=== PATIENT | female | born 1935 | race Caucasian/White ===

== ENCOUNTER 2017-03-09 08:02 | Inpatient (IN) | payer MEDICARE ==
[~2017-03-09] VITALS: Ht 170.2 cm; Wt 123.6 kg
[2017-03-09] VITALS (13 sets, daily range): BP systolic 95–186; BP diastolic 38–122
[2017-03-09 08:28] LABS: BLOOD GAS PH 7.351 (7.35-7.45)
[2017-03-09 08:29] LABS: BLOOD GAS BASE EXCESS 5.5 mmol/L (-2.0-2.0); BLOOD GAS HCO3 32.5 mmol/L; BLOOD GAS PO2 57.4 mmHg
[2017-03-09 08:31] LABS: BLOOD GAS O2 SAT% 88.7 % (92.0-98.5)
[2017-03-09] MEDS ORDERED: PHE25S RC (08:33)
[2017-03-09] MEDS ORDERED: NA P135N RC (08:33)
[2017-03-09] MEDS ORDERED: DOCU-67 PO (08:33)
[2017-03-09] MEDS ORDERED: FERR325E14 PO (08:33)
[2017-03-09] MEDS ORDERED: MAGN400S60 PO (08:33)
[2017-03-09] MEDS ORDERED: BISA-213 RC (08:33)
[2017-03-09] MEDS ORDERED: CHOL400C PO (08:33)
[2017-03-09] MEDS ORDERED: ACET-1182 PO (08:33)
[2017-03-09] MEDS ORDERED: FOLI1TAB90 PO (08:33)
[2017-03-09] MEDS ORDERED: ACET-2858 PO (08:33)
[2017-03-09] MEDS ORDERED: LIDO5TDM45 TP (08:33)
[2017-03-09] MEDS ORDERED: CAR30 PO (08:33)
[2017-03-09] MEDS ORDERED: WARF-18 PO (08:33)
[2017-03-09] MEDS ORDERED: MYCPWD TP (08:33)
[2017-03-09] MEDS ORDERED: WARF2.5T77 PO (08:33)
[2017-03-09] MEDS ORDERED: ACET325C3 PO (08:33)
[2017-03-09] MEDS ORDERED: MULT-1305 PO (08:33)
[2017-03-09] MEDS ORDERED: MELA3TER PO ×2 (08:33)
[2017-03-09] MEDS ORDERED: ALLO100T21 PO (08:33)
[2017-03-09] MEDS ORDERED: fentaNYL 0.05 MG/ML VIAL IVP ONE ×2 (08:35→11:05)
[2017-03-09 08:45] LABS: BASOPHILS # (AUTO) 0.1 K/uL (0.00-0.22); BASOPHILS % (AUTO) 1.2 % (0.0-2.0); EOSINOPHILS # (AUTO) 0.2 K/uL (0-0.4); EOSINOPHILS % (AUTO) 2.3 % (0.0-4.0); HEMATOCRIT 30.6 % (36-48); HEMOGLOBIN 9.9 g/dL (12.0-16.0); LYMPHOCYTES # (AUTO) 0.6 K/uL (2.5-16.5); LYMPHOCYTES % (AUTO) 6.6 % (20.5-51.1); MEAN CORPUSCULAR HEMOGLOBIN 31 pg (27-31); MEAN CORPUSCULAR HGB CONC 32 g/dL (33-37); MEAN CORPUSCULAR VOLUME 95 fL (80-94); MONOCYTES # (AUTO) 0.3 K/uL (0.8-1.0); MONOCYTES % (AUTO) 3.7 % (1.7-9.3); NEUTROPHILS # (AUTO) 7.9 K/uL (1.8-7.7); NEUTROPHILS % (AUTO) 86.2 % (42.2-75.2); PLATELET COUNT (AUTO) 271 K/uL (140-450); RED BLOOD CELL COUNT(AUTO) 3.24 MIL/uL (4.20-5.40); RED CELL DISTRIBUTION WIDTH 14.8 % (11.6-13.7)
[2017-03-09 08:50] LABS: APPEARANCE,URINE HAZY (CLEAR); BILIRUBIN,URINE NEGATIVE (NEGATIVE); BLOOD, URINE NEGATIVE (NEGATIVE); COLOR,URINE YELLOW (YELLOW); LEUKOCYTE ESTERASE ,URINE NEGATIVE (NEGATIVE); NITRITE, URINE NEGATIVE (NEGATIVE); PH,URINE 6.5 (5.0-9.0); PROTEIN,URINE TRACE (NEGATIVE); UGLUCOSE NEGATIVE (NEGATIVE)
[2017-03-09 08:59] LABS: WHITE BLOOD COUNT (AUTO) 9.1 K/uL (4.8-10.8)
[2017-03-09 09:02] LABS: ALANINE AMINOTRANSFERASE 14 U/L (14-59); ALBUMIN 2.6 g/dL (3.4-5.0); ALKALINE PHOSPHATASE 103 U/L (46-116); ANION GAP 8.8 (8-16); ASPARTATE AMINOTRANSFERASE 19 U/L (15-37); CALCIUM 8.8 mg/dL (8.5-10.1); CARBON DIOXIDE 29.1 mmol/L (21-32); CHLORIDE 73 mmol/L (98-107); CREATININE 0.6 mg/dL (0.6-1.3); GLUCOSE 118 mg/dL (74-106); LIPASE 119 U/L (73-393); POTASSIUM 4.9 mmol/L (3.5-5.1); TOTAL BILIRUBIN 0.6 mg/dL (0.0-1.0); TOTAL PROTEIN, SERUM 7.3 g/dL (6.4-8.2); UREA NITROGEN, BLOOD 9 mg/dL (7-18)
[2017-03-09 09:03] LABS: INR 3.1 (0.8-1.2); PROTHROMBIN TIME 31.4 secs (10.8-13.4)
[2017-03-09 09:05] LABS: LACTIC ACID 1.1 mmol/L (0.4-2.0); SODIUM SERUM 106 mmol/L (136-145)
[2017-03-09] MEDS ORDERED: NACL 0.9% 1,000 ML IV ONE (09:10)
[2017-03-09] MEDS ORDERED: ONDANSETRON 4 MG/2 ML VIAL IVP PRN (10:10)
[2017-03-09] MEDS ORDERED: ACETAMINOPHEN 325 MG TAB PO PRN (10:10)
[2017-03-09] MEDS ORDERED: MECLIZINE 25 MG TAB PO PRN (10:15)
[2017-03-09] MEDS ORDERED: NACL 3% 250 ML IV ONE (10:50)
[2017-03-09] MEDS ORDERED: NACL 3% 100 ML IV ONE ×3 (11:00→23:00)
[2017-03-09 11:03] LABS: CHOL/HDL RATIO 1.8 (1-4.5); FREE T4 (FREE THYROXINE) 1.36 ng/dL (0.76-1.46); MAGNESIUM 1.3 mg/dL (1.8-2.4); THYROID STIMULATING HORMONE 1.74 uIU/mL (0.34-3.74)
[2017-03-09] MEDS ORDERED: ALBUTEROL SULFATE/IPRATROPIU 3 ML SOL IH PRN (11:05)
[2017-03-09] MEDS ORDERED: LORazepam 2 MG/ML VIAL IVP ONE (11:05)
[2017-03-09 11:13] LABS: ANION GAP 9.7 (8-16); CALCIUM 8.4 mg/dL (8.5-10.1); CARBON DIOXIDE 28.4 mmol/L (21-32); CHLORIDE 74 mmol/L (98-107); CREATININE 0.7 mg/dL (0.6-1.3); GLUCOSE 136 mg/dL (74-106); POTASSIUM 5.1 mmol/L (3.5-5.1); UREA NITROGEN, BLOOD 8 mg/dL (7-18)
[2017-03-09 11:15] LABS: SODIUM SERUM 107 mmol/L (136-145)
[2017-03-09 11:47] LABS: BLOOD GAS BASE EXCESS 4.1 mmol/L (-2.0-2.0); BLOOD GAS HCO3 28.3 mmol/L; BLOOD GAS PH 7.457 (7.35-7.45)
[2017-03-09 11:48] LABS: BLOOD GAS O2 SAT% 94.8 % (92.0-98.5)
[2017-03-09] MEDS ORDERED: FUROSEMIDE 20 MG/2 ML VIAL IVP SCH ×2 (13:13→18:28)
[2017-03-09] MEDS: ALBUTEROL SULFATE/IPRATROPIU 3 ML SOL IH SCH ×2 (13:17→18:00)
[2017-03-09] MEDS ORDERED: LIDOCAINE 5% 1 EA PATCH TP PRN (14:35)
[2017-03-09] MEDS ORDERED: WARFARIN 5 MG TAB PO SCH (14:35)
[2017-03-09] MEDS ORDERED: ACETAMINOPHEN 325 MG TAB PO SCH (14:35)
[2017-03-09] MEDS ORDERED: MAGNESIUM HYDROXIDE 2400 MG/30 ML UDC PO PRN (14:35)
[2017-03-09] MEDS ORDERED: PROMETHAZINE 25 MG SUPP RC PRN (14:35)
[2017-03-09] MEDS ORDERED: BISACODYL 10 MG SUPP RC PRN (14:35)
[2017-03-09] MEDS ORDERED: fentaNYL 1 MG in NACL 0.9% 80 ML IV PRN (14:55)
[2017-03-09] MEDS ORDERED: MIDAZOLAM MDV 50 MG in NACL 0.9% 40 ML IV PRN ×2 (15:05→15:25)
[2017-03-09] MEDS ORDERED: WARFARIN 1 MG TAB PO SCH (17:00)
[2017-03-09 18:16] LABS: ANION GAP 8.5 (8-16); CALCIUM 8.4 mg/dL (8.5-10.1); CARBON DIOXIDE 29.1 mmol/L (21-32); CHLORIDE 76 mmol/L (98-107); CREATININE 0.6 mg/dL (0.6-1.3); GLUCOSE 70 mg/dL (74-106); POTASSIUM 4.6 mmol/L (3.5-5.1); UREA NITROGEN, BLOOD 10 mg/dL (7-18)
[2017-03-09 18:19] LABS: SODIUM SERUM 109 mmol/L (136-145)
[2017-03-09] MEDS ORDERED: MAG SULF 2000 MG/WATER PREMIX 50 ML IV SCH (18:57)
[2017-03-09] MEDS ORDERED: DOCUSATE 100 MG/10 ML UDC PO SCH (21:00)
[2017-03-09] MEDS: DILTIAZEM 30 MG TAB PO SCH (21:00)
[2017-03-09] MEDS: DOCUSATE SODIUM 100 MG GELCAP PO SCH (21:00)
[2017-03-09] MEDS: FERROUS SULFATE 300 MG/5 ML UDC PO SCH (21:00)
[2017-03-10] VITALS (20 sets, daily range): BP systolic 97–158; BP diastolic 52–89
[2017-03-10 01:15] LABS: CALCIUM 8.4 mg/dL (8.5-10.1); CARBON DIOXIDE 28.8 mmol/L (21-32); CHLORIDE 79 mmol/L (98-107); CREATININE 0.7 mg/dL (0.6-1.3); GLUCOSE 69 mg/dL (74-106); POTASSIUM 3.8 mmol/L (3.5-5.1); UREA NITROGEN, BLOOD 9 mg/dL (7-18)
[2017-03-10 02:19] LABS: SODIUM SERUM 114 mmol/L (136-145)
[2017-03-10] MEDS ORDERED: FUROSEMIDE 20 MG/2 ML VIAL IVP SCH ×5 (02:25→18:00)
[2017-03-10] MEDS ORDERED: DEXT 5% / NACL 0.9% 1,000 ML IV ONE (02:35)
[2017-03-10 03:30] LABS: ANION GAP 10.4 (8-16); CALCIUM 8.2 mg/dL (8.5-10.1); CARBON DIOXIDE 27.5 mmol/L (21-32); CHLORIDE 80 mmol/L (98-107); CREATININE 0.7 mg/dL (0.6-1.3); GLUCOSE 71 mg/dL (74-106); POTASSIUM 3.9 mmol/L (3.5-5.1); UREA NITROGEN, BLOOD 8 mg/dL (7-18)
[2017-03-10 03:31] LABS: SODIUM SERUM 114 mmol/L (136-145)
[2017-03-10] MEDS ORDERED: NACL 3% 100 ML IV ONE (06:00)
[2017-03-10] MEDS: ALBUTEROL SULFATE/IPRATROPIU 3 ML SOL IH SCH ×3 (06:28→19:35)
[2017-03-10] MEDS: DILTIAZEM 30 MG TAB PO SCH ×3 (06:28→20:35)
[2017-03-10 07:02] LABS: BASOPHILS # (AUTO) 0.1 K/uL (0.00-0.22); BASOPHILS % (AUTO) 1.3 % (0.0-2.0); EOSINOPHILS # (AUTO) 0.1 K/uL (0-0.4); EOSINOPHILS % (AUTO) 0.9 % (0.0-4.0); HEMATOCRIT 27.9 % (36-48); HEMOGLOBIN 9.2 g/dL (12.0-16.0); LYMPHOCYTES # (AUTO) 0.6 K/uL (2.5-16.5); LYMPHOCYTES % (AUTO) 8.5 % (20.5-51.1); MEAN CORPUSCULAR HEMOGLOBIN 31 pg (27-31); MEAN CORPUSCULAR HGB CONC 33 g/dL (33-37); MEAN CORPUSCULAR VOLUME 93 fL (80-94); MONOCYTES # (AUTO) 0.6 K/uL (0.8-1.0); MONOCYTES % (AUTO) 8.9 % (1.7-9.3); NEUTROPHILS # (AUTO) 5.5 K/uL (1.8-7.7); NEUTROPHILS % (AUTO) 80.4 % (42.2-75.2); PLATELET COUNT (AUTO) 248 K/uL (140-450); RED BLOOD CELL COUNT(AUTO) 3.02 MIL/uL (4.20-5.40); RED CELL DISTRIBUTION WIDTH 14.4 % (11.6-13.7)
[2017-03-10 07:07] LABS: CALCIUM 8.3 mg/dL (8.5-10.1); CREATININE 0.7 mg/dL (0.6-1.3); GLUCOSE 86 mg/dL (74-106); UREA NITROGEN, BLOOD 8 mg/dL (7-18)
[2017-03-10 07:24] LABS: MAGNESIUM 1.5 mg/dL (1.8-2.4); PHOSPHORUS 1.9 mg/dL (2.5-4.9)
[2017-03-10 07:28] LABS: PROTHROMBIN TIME 35.3 secs (10.8-13.4)
[2017-03-10 07:32] LABS: INR 3.5 (0.8-1.2)
[2017-03-10 07:36] LABS: BLOOD GAS BASE EXCESS 6.4 mmol/L (-2.0-2.0); BLOOD GAS HCO3 28.2 mmol/L; BLOOD GAS O2 SAT% 94.3 % (92.0-98.5); BLOOD GAS PCO2 30.4 mmHg (20-50); BLOOD GAS PH 7.586 (7.35-7.45); BLOOD GAS PO2 63.7 mmHg
[2017-03-10 07:49] LABS: CARBON DIOXIDE 28.2 mmol/L (21-32); CHLORIDE 81 mmol/L (98-107); POTASSIUM 3.2 mmol/L (3.5-5.1)
[2017-03-10 08:09] LABS: SODIUM SERUM 116 mmol/L (136-145)
[2017-03-10 08:11] LABS: WHITE BLOOD COUNT (AUTO) 6.9 K/uL (4.8-10.8)
[2017-03-10] MEDS: DEXT 5% / NACL 0.9% 1,000 ML IV SCH ×2 (08:20→15:03)
[2017-03-10] MEDS ORDERED: SODIUM PHOS / POTASSIUM PHOS 1 PKT PDR NG SCH (09:00)
[2017-03-10] MEDS ORDERED: MAG SULF 2000 MG/WATER PREMIX 50 ML IV SCH (09:00)
[2017-03-10] MEDS: FOLIC ACID 1 MG TAB PO SCH (09:42)
[2017-03-10] MEDS: DOCUSATE SODIUM 100 MG GELCAP PO SCH ×2 (09:42→20:34)
[2017-03-10] MEDS: FERROUS SULFATE 300 MG/5 ML UDC PO SCH ×2 (09:42→20:34)
[2017-03-10] MEDS: NYSTATIN POW 100 MU/GM 15 GM BTL TP SCH (09:43)
[2017-03-10] MEDS: ALLOPURINOL 100 MG TAB PO SCH (09:43)
[2017-03-10] MEDS ORDERED: MORPHINE SULFATE 2 MG/ML SYR IVP PRN (12:35)
[2017-03-10] MEDS ORDERED: NACL 3% 500 ML IV SCH ×2 (14:00→14:50)
[2017-03-10 14:34] LABS: CARBON DIOXIDE 31.7 mmol/L (21-32); CHLORIDE 83 mmol/L (98-107); CREATININE 0.7 mg/dL (0.6-1.3); GLUCOSE 113 mg/dL (74-106); UREA NITROGEN, BLOOD 8 mg/dL (7-18)
[2017-03-10 14:38] LABS: POTASSIUM 2.7 mmol/L (3.5-5.1); SODIUM SERUM 119 mmol/L (136-145)
[2017-03-10] MEDS ORDERED: ACETAMINOPHEN 650 MG/20.3 ML UDC NG PRN (14:45)
[2017-03-10 15:27] LABS: BLOOD GAS BASE EXCESS 9.1 mmol/L (-2.0-2.0); BLOOD GAS HCO3 31.6 mmol/L; BLOOD GAS PCO2 34.9 mmHg (20-50); BLOOD GAS PH 7.575 (7.35-7.45); BLOOD GAS PO2 82.2 mmHg
[2017-03-10] MEDS ORDERED: MAG SULF 2000 MG/WATER PREMIX 50 ML IV ONE (16:25)
[2017-03-10] MEDS ORDERED: KCL 20 MEQ/WATER INJ PREMIX 200 ML IV SCH (17:00)
[2017-03-10] MEDS ORDERED: SODIUM PHOS / POTASSIUM PHOS 1 PKT PDR PO SCH (19:40)
[2017-03-10] MEDS: DOCUSATE 100 MG/10 ML UDC GT SCH (23:00)
[2017-03-10 23:04] LABS: CALCIUM 7.9 mg/dL (8.5-10.1); CARBON DIOXIDE 31.2 mmol/L (21-32); CHLORIDE 87 mmol/L (98-107); CREATININE 0.7 mg/dL (0.6-1.3); GLUCOSE 118 mg/dL (74-106); POTASSIUM 3.2 mmol/L (3.5-5.1); UREA NITROGEN, BLOOD 7 mg/dL (7-18)
[2017-03-10 23:27] LABS: SODIUM SERUM 121 mmol/L (136-145)
[2017-03-11] VITALS (10 sets, daily range): BP systolic 102–143; BP diastolic 52–83
[2017-03-11 02:37] LABS: ANION GAP 4.7 (8-16); CALCIUM 7.7 mg/dL (8.5-10.1); CARBON DIOXIDE 32.3 mmol/L (21-32); CHLORIDE 89 mmol/L (98-107); CREATININE 0.7 mg/dL (0.6-1.3); GLUCOSE 114 mg/dL (74-106); UREA NITROGEN, BLOOD 9 mg/dL (7-18)
[2017-03-11 02:48] LABS: SODIUM SERUM 123 mmol/L (136-145)
[2017-03-11] MEDS: DEXT 5% / NACL 0.9% 1,000 ML IV SCH ×3 (03:30→14:59)
[2017-03-11 04:55] LABS: BASOPHILS % (AUTO) 0.3 % (0.0-2.0); EOSINOPHILS # (AUTO) 0.1 K/uL (0-0.4); EOSINOPHILS % (AUTO) 1.1 % (0.0-4.0); HEMATOCRIT 24.9 % (36-48); LYMPHOCYTES # (AUTO) 0.6 K/uL (2.5-16.5); MEAN CORPUSCULAR HEMOGLOBIN 30 pg (27-31); MEAN CORPUSCULAR HGB CONC 32 g/dL (33-37); MEAN CORPUSCULAR VOLUME 94 fL (80-94); MONOCYTES # (AUTO) 0.5 K/uL (0.8-1.0); MONOCYTES % (AUTO) 7.1 % (1.7-9.3); NEUTROPHILS # (AUTO) 5.3 K/uL (1.8-7.7); NEUTROPHILS % (AUTO) 82.5 % (42.2-75.2); PLATELET COUNT (AUTO) 195 K/uL (140-450); RED BLOOD CELL COUNT(AUTO) 2.66 MIL/uL (4.20-5.40); WHITE BLOOD COUNT (AUTO) 6.5 K/uL (4.8-10.8)
[2017-03-11 05:21] LABS: ANION GAP 2.4 (8-16); CALCIUM 7.7 mg/dL (8.5-10.1); CARBON DIOXIDE 33.5 mmol/L (21-32); CHLORIDE 91 mmol/L (98-107); CREATININE 0.7 mg/dL (0.6-1.3); GLUCOSE 121 mg/dL (74-106); UREA NITROGEN, BLOOD 9 mg/dL (7-18)
[2017-03-11 05:25] LABS: MAGNESIUM 1.7 mg/dL (1.8-2.4); PHOSPHORUS 3.2 mg/dL (2.5-4.9)
[2017-03-11] MEDS: DILTIAZEM 30 MG TAB PO SCH ×2 (05:30→12:30)
[2017-03-11 05:31] LABS: POTASSIUM 2.9 mmol/L (3.5-5.1); SODIUM SERUM 124 mmol/L (136-145)
[2017-03-11 05:43] LABS: PROTHROMBIN TIME 30.7 secs (10.8-13.4)
[2017-03-11] MEDS ORDERED: KCL 20 MEQ/WATER INJ PREMIX 200 ML IV SCH (05:45)
[2017-03-11] MEDS: ALBUTEROL SULFATE/IPRATROPIU 3 ML SOL IH SCH ×2 (07:40→13:46)
[2017-03-11] MEDS ORDERED: ONDA2SOL45 IVP (08:10)
[2017-03-11] MEDS ORDERED: CAR30 PO (08:10)
[2017-03-11] MEDS ORDERED: PHE25S RC (08:10)
[2017-03-11] MEDS ORDERED: FER300L PO (08:10)
[2017-03-11] MEDS ORDERED: FOLI1TAB90 PO (08:10)
[2017-03-11] MEDS ORDERED: IPRA3AMP IH ×2 (08:10)
[2017-03-11] MEDS ORDERED: ACET650S53 NG (08:10)
[2017-03-11] MEDS ORDERED: COL100L GT (08:10)
[2017-03-11] MEDS ORDERED: POTA40SO5 PO (08:10)
[2017-03-11] MEDS ORDERED: BISA10SU46 RC (08:10)
[2017-03-11] MEDS ORDERED: MOM PO (08:10)
[2017-03-11] MEDS ORDERED: ALLO100T21 PO (08:10)
[2017-03-11] MEDS ORDERED: MYCPWD TP (08:10)
[2017-03-11] MEDS: FERROUS SULFATE 300 MG/5 ML UDC PO SCH (08:56)
[2017-03-11] MEDS: DOCUSATE 100 MG/10 ML UDC GT SCH (08:56)
[2017-03-11] MEDS: ALLOPURINOL 100 MG TAB PO SCH (08:56)
[2017-03-11] MEDS: FOLIC ACID 1 MG TAB PO SCH (08:56)
[2017-03-11] MEDS ORDERED: POTASSIUM CHLORIDE 20% 40 MEQ/15 ML UDC PO SCH (09:00)
[2017-03-11] MEDS ORDERED: WARFARIN 2.5 MG TAB PO SCH (09:00)
[2017-03-11] MEDS: NYSTATIN POW 100 MU/GM 15 GM BTL TP SCH (09:09)
[2017-03-11] MEDS ORDERED: POTASSIUM CHLORIDE 20% 40 MEQ/15 ML UDC NG SCH (12:15)
[2017-03-11] MEDS ORDERED: FUROSEMIDE 20 MG/2 ML VIAL IVP SCH (15:00)
[2017-03-11] MEDS ORDERED: MAG SULF 2000 MG/WATER PREMIX 100 ML IV SCH (15:55)
[2017-03-11 16:12] LABS: ANION GAP 6.6 (8-16); CALCIUM 8.4 mg/dL (8.5-10.1); CARBON DIOXIDE 31.5 mmol/L (21-32); CHLORIDE 92 mmol/L (98-107); CREATININE 0.6 mg/dL (0.6-1.3); GLUCOSE 107 mg/dL (74-106); POTASSIUM 4.1 mmol/L (3.5-5.1); SODIUM SERUM 126 mmol/L (136-145); UREA NITROGEN, BLOOD 7 mg/dL (7-18)
== END 2017-03-11 19:49 | disposition short-term general hospital (02) | DRG 208 ==
LOC: MED 08:02 → MIC 10:48
PROVIDERS: ADMIT Family Medicine; ATTEND Family Medicine
PROC: 5A1935Z Respiratory Ventilation, Less than 24 Consecutive Hours (ICD-10-PCS; principal; 2017-03-09)
PROC: 0BH17EZ Insertion of Endotracheal Airway into Trachea, Via Natural or Artificial Opening (ICD-10-PCS; 2017-03-09)
DX: J96.20 Acute and chronic respiratory failure, unspecified whether with hypoxia or hypercapnia (principal); I50.43 Acute on chronic combined systolic (congestive) and diastolic (congestive) heart failure; E43 Unspecified severe protein-calorie malnutrition; G93.41 Metabolic encephalopathy; D68.59 Other primary thrombophilia; Z68.43 Body mass index [BMI] 50.0-59.9, adult; E22.2 Syndrome of inappropriate secretion of antidiuretic hormone; G90.9 Disorder of the autonomic nervous system, unspecified; E11.65 Type 2 diabetes mellitus with hyperglycemia; M10.9 Gout, unspecified; E66.01 Morbid (severe) obesity due to excess calories; G47.33 Obstructive sleep apnea (adult) (pediatric); E87.6 Hypokalemia; E83.42 Hypomagnesemia; R13.10 Dysphagia, unspecified; H40.9 Unspecified glaucoma; H43.819 Vitreous degeneration, unspecified eye; I11.0 Hypertensive heart disease with heart failure; D64.9 Anemia, unspecified; E83.51 Hypocalcemia; E83.39 Other disorders of phosphorus metabolism; E87.8 Other disorders of electrolyte and fluid balance, not elsewhere classified; E11.51 Type 2 diabetes mellitus with diabetic peripheral angiopathy without gangrene; I27.2 Other secondary pulmonary hypertension; I48.91 Unspecified atrial fibrillation; J44.9 Chronic obstructive pulmonary disease, unspecified; Z74.01 Bed confinement status; Z79.899 Other long term (current) drug therapy; J45.909 Unspecified asthma, uncomplicated
CPT/HCPCS: 31500; 36415; 36600; 70450; 71010; 80048; 80053; 81003; 82140; 82150; 82803; 83036; 83605; 83690; 83735; 83880; 83930; 83935; 84100; 84300; 84439; 84443; 84484; 85025; 85610; 85730; 87040; 87070; 87081; 87086; 87205; 89220; 93005; 93880; 94002; 94003; 94640; 96361; 96374; 96375; 99291; 99292; J1644; J1940; J2060; J2250; J3010; J3475; J3480; J3490; J7030; J7042; J7620; Q0092